=== PATIENT | female | born 1935 | race Caucasian/White ===

== ENCOUNTER 2024-02-25 08:27 | Day surgery (SDC) | payer OTHER, MEDICARE ==
[2024-02-19 10:54] LABS: BASOPHILS # (AUTO) 0.1 K/uL (0.0-0.2); EOSINOPHILS # (AUTO) 0.2 K/uL (0.0-0.4); EOSINOPHILS % (AUTO) 3.3 % (0.0-4.0); HEMATOCRIT 40.7 % (36-48); HEMOGLOBIN 13.8 g/dL (12.0-16.0); LYMPHOCYTES % (AUTO) 16.7 % (20.5-51.5); MEAN CORPUSCULAR HEMOGLOBIN 37 pg (27-31); MEAN CORPUSCULAR HGB CONC 34 % (32-36); MEAN CORPUSCULAR VOLUME 108 fL (79.0-98.0); MONOCYTES # (AUTO) 0.7 K/uL (0.0-1.0); MONOCYTES % (AUTO) 11.9 % (1.7-9.3); NEUTROPHILS # (AUTO) 3.9 K/uL (1.8-7.7); NEUTROPHILS % (AUTO) 67.1 % (40.0-70.0); PLATELET COUNT (AUTO) 267 K/uL (130-430); RED BLOOD CELL COUNT(AUTO) 3.77 MIL/uL (4.2-6.2); RED CELL DISTRIBUTION WIDTH 13.2 % (9.0-15.0); WHITE BLOOD COUNT (AUTO) 5.8 K/uL (4.8-10.8)
[2024-02-19 11:13] LABS: PROTHROMBIN TIME 10.6 SECS (9.5-12.5)
[2024-02-19 11:53] LABS: ALANINE AMINOTRANSFERASE 27 U/L (12-78); ALBUMIN 3.9 g/dL (3.4-4.8); ANION GAP 6 (5-15); ASPARTATE AMINOTRANSFERASE 28 U/L (10-37); CALCIUM 9.4 mg/dL (8.4-11.0); CARBON DIOXIDE 32 mmol/L (23-29); CHLORIDE 102 mmol/L (98-107); CREATININE 0.94 mg/dL (0.55-1.30); GLUCOSE 108 mg/dL (74-106); POTASSIUM 4.5 mmol/L (3.5-5.1); SODIUM SERUM 140 mmol/L (136-145); TOTAL BILIRUBIN 0.6 mg/dL (0.0-1.0); TOTAL PROTEIN, SERUM 7.7 g/dL (6.4-8.3); UREA NITROGEN, BLOOD 29 mg/dL (8-21)
[2024-02-19 12:37] LABS: HEMOGLOBIN A1C 5.77 % (<5.7)
[~2024-02-25] VITALS: Ht 154.9 cm; Wt 81.6 kg
[2024-02-25] MEDS: CEFAZOLIN SOD 2 GM in D5W 50 ML IV ONE (07:00)
[2024-02-25] MEDS: oxyCODONE HCL 10 MG TAB.ER.12H PO ONE ×2 (07:00→10:58)
[2024-02-25] MEDS: GABAPENTIN 300 MG CAPSULE PO ONE (07:00)
[2024-02-25] MEDS: ACETAMINOPHEN 500 MG TABLET ONE (08:39)
[2024-02-25] MEDS: ONDANSETRON HCL 4 MG/2 ML VIAL ONE (10:53)
[2024-02-25] MEDS: ONDANSETRON HCL 4 MG/2 ML VIAL IVP ONE (10:53)
[2024-02-25] MEDS: GABAPENTIN 300 MG CAPSULE ONE (10:58)
[2024-02-25] MEDS: ACETAMINOPHEN 500 MG TABLET PO ONE (10:58)
[2024-02-25] MEDS ORDERED: LORATADINE 10 MG TABLET PO PRN (11:00)
[2024-02-25] MEDS ORDERED: HYDROmorphone 1 MG/ML INJ. CARTRIDGE IVP PRN ×4 (11:00→11:30)
[2024-02-25] MEDS ORDERED: traMADol HCL HCL 50 MG TABLET (ULTRAM) PO PRN (11:00)
[2024-02-25] MEDS ORDERED: MORPHINE 4 MG INJ. 4 MG/ML VIAL IVP PRN (11:30)
[2024-02-25] MEDS ORDERED: ONDANSETRON HCL 4 MG/2 ML VIAL IVP PRN (11:30)
[2024-02-25] MEDS ORDERED: DEXAMETHASONE SOD PHOSPHATE 4 MG/ML VIAL ONE (11:41)
[2024-02-25] MEDS ORDERED: LIDOCAINE 1% 10 MG/ML, 20 ML MDV ONE (11:41)
[2024-02-25] MEDS ORDERED: NS IRRIG SOLN 1000 ML IR ONE (11:41)
[2024-02-25] MEDS ORDERED: ROCURONIUM BROMIDE 10 MG/ML (ZEMURON) ONE (11:41)
[2024-02-25] MEDS ORDERED: PROPOFOL 200MG/ 20ML VIAL (DIPRIVAN) IV ONE (11:41)
[2024-02-25] MEDS ORDERED: SEVOFLURANE 15 MIN GAS INH ONE (11:41)
[2024-02-25] MEDS ORDERED: LR 1,000 ML IV.SOLN IV ONE (11:41)
[2024-02-25] MEDS ORDERED: CLINDAMYCIN PHOSPHATE 900 mg/50mL D5W IV ONE (11:41)
[2024-02-25] MEDS ORDERED: fentaNYL CITRATE/PF 100 MCG/2 ML AMP ONE (11:41)
[2024-02-25] MEDS ORDERED: SUGAMMADEX SODIUM 200 MG/2 ML VIAL IV ONE (11:41)
[2024-02-25] MEDS ORDERED: SUCCINYLCHOLINE CHLORIDE 20 MG/ML(QUELICIN) ONE (11:41)
[2024-02-25] MEDS ORDERED: WATER FOR IRRIGATION,STERILE 1,000 ML IRRIG.SOLN IR ONE (11:41)
[2024-02-25] MEDS ORDERED: ROPIVACAINE HCL/PF 5 MG/ML 0.5% 30 ML VIAL ONE (11:41)
[2024-02-25] MEDS ORDERED: ONDANSETRON HCL 4 MG/2 ML VIAL ONE (11:41)
[2024-02-25] MEDS ORDERED: VANCOMYCIN HCL 1000 MG/VIAL IV ONE (11:41)
[2024-02-25] MEDS ORDERED: TRANEXAMIC ACID 1,000 MG/10 ML VIAL ONE (11:41)
[2024-02-25] MEDS ORDERED: METOCLOPRAMIDE HCL 10 MG/2 ML VIAL ONE (11:41)
[2024-02-25] MEDS ORDERED: MIDAZOLAM HCL 2 MG/2 ML VIAL (VERSED) ONE (11:41)
[2024-02-25] MEDS: ACETAMINOPHEN I.V. 1000 MG 100 ML IV ONE (12:40)
[2024-02-25] MEDS ORDERED: BISACODYL 10 MG/SUPPOSITORY RC PRN (14:45)
[2024-02-25] MEDS ORDERED: LACTULOSE 20 GM/30 ML UDC PO PRN (14:45)
[2024-02-25] MEDS ORDERED: DIPHENHYDRAMINE HCL 25 MG CAPSULE PO PRN (14:45)
[2024-02-25] MEDS ORDERED: METOCLOPRAMIDE HCL 10 MG/2 ML VIAL IVP PRN (14:45)
[2024-02-25] MEDS ORDERED: ONDANSETRON 4 MG ODT TAB PO PRN (15:00)
[2024-02-25] MEDS ORDERED: HYDROcodone/ACETAMIN 10-325 MG TAB PO PRN (15:00)
[2024-02-25] MEDS ORDERED: HYDROcodone/ACETAMIN 5-325 MG TAB (NORCO/ VICODIN) PO PRN (15:00)
[2024-02-25 16:16] VITALS: BP_SYST 95; PULSE 156; RESP 16; TEMP 96.9; O2SAT 97
[2024-02-25] MEDS: VANCOMYCIN HCL 1 GM/NS PREMIX 250 ML IV ONE (18:44)
[2024-02-25] MEDS: ONDANSETRON HCL 4 MG/2 ML VIAL IVP PRN (18:44)
[2024-02-25] MEDS: KETOROLAC TROMETHAMINE 10 MG TABLET (TORADOL) PO SCH (19:02)
[2024-02-25 20:00] VITALS: BP_SYST 102; PULSE 75; RESP 16; TEMP 97.3; O2SAT 92
[2024-02-25] MEDS: SENNOSIDES/DOCUSATE SODIUM 1 TAB TABLET(SENOKOT-S) PO SCH (21:35)
[2024-02-25] MEDS: ACETAMINOPHEN 500 MG TABLET PO SCH (21:35)
[2024-02-25] MEDS: LR 1,000 ML IV SCH (21:42)
[2024-02-26] VITALS: BP_SYST 96; PULSE 65; RESP 16; TEMP 96.9; O2SAT 92
[2024-02-26 07:59] VITALS: BP_SYST 101; PULSE 72; RESP 18; TEMP 97.3; O2SAT 97
[2024-02-26] MEDS: ASPIRIN 81 MG TAB.CHEW PO SCH (09:16)
[2024-02-26 09:24] VITALS: BP_SYST 101; PULSE 72; RESP 18; TEMP 97.3; O2SAT 97
== END 2024-02-26 10:00 | disposition home or self-care (01) ==
LOC: SDS 08:27 → SMU 08:28 → STU 16:06 → SDS 02-26 10:00
PROVIDERS: ATTEND Orthopaedic Surgery Sports Medicine
DX: M19.011 Primary osteoarthritis, right shoulder (principal); M75.21 Bicipital tendinitis, right shoulder; M25.511 Pain in right shoulder; I10 Essential (primary) hypertension; E78.5 Hyperlipidemia, unspecified; E66.01 Morbid (severe) obesity due to excess calories; Z79.82 Long term (current) use of aspirin; Z79.899 Other long term (current) drug therapy; Z96.651 Presence of right artificial knee joint; Z98.890 Other specified postprocedural states; Z68.34 Body mass index [BMI] 34.0-34.9, adult; Z88.0 Allergy status to penicillin; Z88.1 Allergy status to other antibiotic agents
CPT/HCPCS: 80053; 83037; 85025; 85610; 85730; 87081; 36415; 23472; 23430; 64415; 88304; 88311; 96379; J3490 ×3; J0690; J1100; J2001; J2765; J2250; J2405 ×2; J2704; J0330; J3370 ×2; J3010; J7060; J7120; C1776 ×3; J0131; 76000